=== PATIENT | male | born 1950 | race Caucasian/White ===

== ENCOUNTER 2018-07-19 16:35 | Inpatient (IN) | payer MEDICARE, OTHER ==
[2018-07-19 20:07] LABS: ADD MAN DIFF? NO
[2018-07-19 20:09] LABS: BASOPHIL # 0.1 10^3/ul (0.0-0.1); BASOPHILS % 0.7 % (0.0-2.0); EOSINOPHILS # 0.1 10^3/ul (0.0-0.5); EOSINOPHILS % 1.1 % (0.0-7.0); HEMATOCRIT 44.8 % (42.0-52.0); HEMOGLOBIN 14.5 g/dl (14.0-18.0); LYMPHOCYTES # 2.2 10^3/ul (0.8-2.9); LYMPHOCYTES % 23.1 % (15.0-51.0); MEAN CORPUSCULAR HEMOGLOBIN 28.3 pg (29.0-33.0); MEAN CORPUSCULAR HGB CONC 32.4 g/dl (32.0-37.0); MEAN CORPUSCULAR VOLUME 87.5 fl (82.0-101.0); MEAN PLATELET VOLUME 11.3 fl (7.4-10.4); MONOCYTES % 10.5 % (0.0-11.0); NEUTROPHILS % 63.1 % (39.0-77.0); PLATELET COUNT 242 10^3/UL (140-415); RED BLOOD COUNT 5.12 10^6/ul (4.70-6.10); RED CELL DISTRIBUTION WIDTH 13.9 % (11.5-14.5)
[2018-07-19 20:09] LABS: WHITE BLOOD COUNT 9.5 10^3/ul (4.8-10.8)
[2018-07-19 20:15] LABS: ADD UMIC YES; UR ASCORBIC ACID NEGATIVE (NEGATIVE); UR BILIRUBIN (Dip) NEGATIVE (NEGATIVE); UR BLOOD (Dip) 1+ mg/dL (NEGATIVE); UR CLARITY CLEAR (CLEAR); UR COLOR YELLOW (YELLOW); UR GLUCOSE (Dip) 3+ mg/dL (NEGATIVE); UR KETONES (Dip) NEGATIVE (NEGATIVE); UR LEUKOCYTE ESTERASE (Dip) NEGATIVE Leu/ul (NEGATIVE); UR NITRITE (Dip) NEGATIVE (NEGATIVE); UR RBC 1 /HPF (0-5); UR SPECIFIC GRAVITY (Dip) 1.014 (1.003-1.030); UR TOTAL PROTEIN (Dip) 2+ mg/dl (NEGATIVE); UR UROBILINOGEN (Dip) NEGATIVE (NEGATIVE); UR WBC 4 /HPF (0-5)
[2018-07-19] MEDS: ASPIRIN 81 MG TAB PO (20:19)
[2018-07-19] MEDS: SOD CHLORIDE 0.9% 500 ML IV (20:19)
[2018-07-19 20:28] LABS: ALANINE AMINOTRANSFERASE 23 IU/L (13-69); ALBUMIN 3.9 g/dl (3.3-4.9); ALBUMIN/GLOBULIN RATIO 1.21; ALKALINE PHOSPHATASE 98 IU/L (42-121); ANION GAP 14 (5-13); ASPARTATE AMINO TRANSFERASE 37 IU/L (15-46); BLOOD UREA NITROGEN 38 mg/dl (7-20); CALCIUM 9.5 mg/dl (8.4-10.2); CARBON DIOXIDE 26 mmol/L (21-31); CHLORIDE 95 mmol/L (97-110); CREATININE 2.29 mg/dl (0.61-1.24); Estimated GFR 29 mL/min (>60); INR 0.98; PROTIME 13.1 Sec (11.9-14.9); SODIUM 135 mmol/L (135-144); TOTAL PROTEIN 7.1 g/dl (6.1-8.1)
[2018-07-19 20:29] LABS: PARTIAL THROMBOPLASTIN TIME 23.1 Sec (23.0-35.0)
[2018-07-19 20:38] LABS: TROPONIN-I 0.052 ng/ml (0.000-0.120)
[2018-07-19 20:49] LABS: GLUCOSE 465 mg/dl (70-220)
[2018-07-19] MEDS: INSULIN LISPRO 100 UNIT/ML VIAL SC (21:08)
[2018-07-19] MEDS: SOD CHLORIDE 0.9% 1,000 ML IV (21:51)
[2018-07-19] MEDS ORDERED: ONDANSETRON 4 MG INJ IV (22:00)
[2018-07-19] MEDS ORDERED: ACETAMINOPHEN 325 MG TAB PO (22:00)
[2018-07-19] MEDS: DOCUSATE SODIUM 100 MG CAP PO (23:30)
[2018-07-20] MEDS ORDERED: GLUCAGON 1 MG INJ IM
[2018-07-20] MEDS ORDERED: DEXTROSE 50% 50 ML SYRINGE IV ×2
[2018-07-20] MEDS ORDERED: GLUCOSE GEL 15 GRAM TUBE PO ×2
[2018-07-20] MEDS ORDERED: GLUCOSE GEL 15 GRAM TUBE BUCCAL
[2018-07-20] MEDS: CLONIDINE 0.2 MG/24 HR PATCH TRANSDERM (00:41)
[2018-07-20] MEDS: INSULIN ASPART [NOVOLOG] 3 ML PEN SC ×4 (08:08→20:30)
[2018-07-20 08:29] LABS: ADD MAN DIFF? NO
[2018-07-20 08:37] LABS: BASOPHIL # 0.1 10^3/ul (0.0-0.1); BASOPHILS % 0.9 % (0.0-2.0); EOSINOPHILS # 0.1 10^3/ul (0.0-0.5); EOSINOPHILS % 1.2 % (0.0-7.0); HEMATOCRIT 43.1 % (42.0-52.0); HEMOGLOBIN 14.1 g/dl (14.0-18.0); LYMPHOCYTES # 1.8 10^3/ul (0.8-2.9); LYMPHOCYTES % 23.6 % (15.0-51.0); MEAN CORPUSCULAR HEMOGLOBIN 28.5 pg (29.0-33.0); MEAN CORPUSCULAR HGB CONC 32.7 g/dl (32.0-37.0); MEAN CORPUSCULAR VOLUME 87.1 fl (82.0-101.0); MEAN PLATELET VOLUME 11.4 fl (7.4-10.4); MONOCYTE # 0.8 10^3/ul (0.3-0.9); MONOCYTES % 10.1 % (0.0-11.0); NEUTROPHIL # 4.9 10^3/ul (1.6-7.5); PLATELET COUNT 206 10^3/UL (140-415); RED BLOOD COUNT 4.95 10^6/ul (4.70-6.10)
[2018-07-20 08:37] LABS: WHITE BLOOD COUNT 7.7 10^3/ul (4.8-10.8)
[2018-07-20 08:58] LABS: ANION GAP 12 (5-13); BLOOD UREA NITROGEN 35 mg/dl (7-20); CALCIUM 9.1 mg/dl (8.4-10.2); CARBON DIOXIDE 28 mmol/L (21-31); CHLORIDE 100 mmol/L (97-110); CREATININE 1.96 mg/dl (0.61-1.24); Estimated GFR 34 mL/min (>60); GLUCOSE 282 mg/dl (70-220); MAGNESIUM 1.8 mg/dl (1.7-2.5); POTASSIUM 4.6 mmol/L (3.5-5.1); SODIUM 140 mmol/L (135-144)
[2018-07-20] MEDS ORDERED: DILTIAZEM (CD) 180 MG CAP PO (09:00)
[2018-07-20] MEDS ORDERED: DILTIAZEM (CD) 120 MG CAP PO (09:00)
[2018-07-20] MEDS: DOCUSATE SODIUM 100 MG CAP PO ×2 (09:33→20:32)
[2018-07-20] MEDS: ASPIRIN (EC) 325 MG TAB PO (09:33)
[2018-07-20] MEDS: GABAPENTIN 100 MG CAP PO ×3 (09:33→20:32)
[2018-07-20] MEDS: METOPROLOL 25 MG TAB PO ×2 (13:37→20:33)
[2018-07-20] MEDS: LOSARTAN 50 MG TAB PO (13:38)
[2018-07-20] MEDS: AMLODIPINE 10 MG TAB PO (13:39)
[2018-07-21 06:15] LABS: ADD MAN DIFF? NO
[2018-07-21 06:24] LABS: WHITE BLOOD COUNT 7.2 10^3/ul (4.8-10.8)
[2018-07-21 06:24] LABS: BASOPHIL # 0.1 10^3/ul (0.0-0.1); BASOPHILS % 1.1 % (0.0-2.0); EOSINOPHILS # 0.2 10^3/ul (0.0-0.5); EOSINOPHILS % 2.1 % (0.0-7.0); HEMATOCRIT 46.9 % (42.0-52.0); HEMOGLOBIN 15.1 g/dl (14.0-18.0); LYMPHOCYTES # 1.7 10^3/ul (0.8-2.9); LYMPHOCYTES % 23.5 % (15.0-51.0); MEAN CORPUSCULAR HEMOGLOBIN 28.4 pg (29.0-33.0); MEAN CORPUSCULAR HGB CONC 32.2 g/dl (32.0-37.0); MEAN CORPUSCULAR VOLUME 88.2 fl (82.0-101.0); MEAN PLATELET VOLUME 11.4 fl (7.4-10.4); MONOCYTE # 0.8 10^3/ul (0.3-0.9); MONOCYTES % 11.6 % (0.0-11.0); NEUTROPHIL # 4.3 10^3/ul (1.6-7.5); PLATELET COUNT 218 10^3/UL (140-415); RED BLOOD COUNT 5.32 10^6/ul (4.70-6.10); RED CELL DISTRIBUTION WIDTH 14.1 % (11.5-14.5)
[2018-07-21 06:41] LABS: ANION GAP 17 (5-13); BLOOD UREA NITROGEN 37 mg/dl (7-20); CALCIUM 9.2 mg/dl (8.4-10.2); CARBON DIOXIDE 24 mmol/L (21-31); CHLORIDE 99 mmol/L (97-110); CREATININE 1.83 mg/dl (0.61-1.24); Estimated GFR 37 mL/min (>60); GLUCOSE 373 mg/dl (70-220); SODIUM 140 mmol/L (135-144)
[2018-07-21] MEDS: INSULIN GLARGINE [LANTus] (100 UNITS/ML) SYG SC ×3 (08:16→23:23)
[2018-07-21] MEDS: INSULIN ASPART [NOVOLOG] 3 ML PEN SC ×3 (08:17→17:32)
[2018-07-21] MEDS: DOCUSATE SODIUM 100 MG CAP PO ×2 (08:19→20:36)
[2018-07-21] MEDS: METOPROLOL 25 MG TAB PO ×2 (08:19→20:39)
[2018-07-21] MEDS: ASPIRIN 81 MG TAB PO (08:19)
[2018-07-21] MEDS: GABAPENTIN 100 MG CAP PO ×3 (08:20→20:36)
[2018-07-21] MEDS: LOSARTAN 50 MG TAB PO (08:20)
[2018-07-21] MEDS: AMLODIPINE 10 MG TAB PO (08:20)
[2018-07-21] MEDS: ACCU-CHEK XX ×3 (10:52→20:35)
[2018-07-22] MEDS: INSULIN GLARGINE [LANTus] (100 UNITS/ML) SYG SC ×2 (00:56→07:37)
[2018-07-22 05:50] LABS: ADD MAN DIFF? NO
[2018-07-22 05:56] LABS: BASOPHIL # 0.1 10^3/ul (0.0-0.1); BASOPHILS % 1.2 % (0.0-2.0); EOSINOPHILS # 0.2 10^3/ul (0.0-0.5); HEMATOCRIT 42.7 % (42.0-52.0); HEMOGLOBIN 13.8 g/dl (14.0-18.0); LYMPHOCYTES # 2.2 10^3/ul (0.8-2.9); LYMPHOCYTES % 28.9 % (15.0-51.0); MEAN CORPUSCULAR HEMOGLOBIN 28.5 pg (29.0-33.0); MEAN CORPUSCULAR HGB CONC 32.3 g/dl (32.0-37.0); MEAN CORPUSCULAR VOLUME 88.2 fl (82.0-101.0); MEAN PLATELET VOLUME 11.3 fl (7.4-10.4); MONOCYTE # 0.8 10^3/ul (0.3-0.9); MONOCYTES % 10.7 % (0.0-11.0); NEUTROPHIL # 4.2 10^3/ul (1.6-7.5); NEUTROPHILS % 55.7 % (39.0-77.0); PLATELET COUNT 209 10^3/UL (140-415); RED BLOOD COUNT 4.84 10^6/ul (4.70-6.10); RED CELL DISTRIBUTION WIDTH 14.1 % (11.5-14.5)
[2018-07-22 05:56] LABS: WHITE BLOOD COUNT 7.5 10^3/ul (4.8-10.8)
[2018-07-22 06:25] LABS: ANION GAP 9 (5-13); BLOOD UREA NITROGEN 34 mg/dl (7-20); CALCIUM 9.1 mg/dl (8.4-10.2); CARBON DIOXIDE 27 mmol/L (21-31); CHLORIDE 104 mmol/L (97-110); Estimated GFR 43 mL/min (>60); GLUCOSE 155 mg/dl (70-220); SODIUM 140 mmol/L (135-144)
[2018-07-22] MEDS: INSULIN ASPART [NOVOLOG] 3 ML PEN SC ×3 (07:37→17:21)
[2018-07-22] MEDS: AMLODIPINE 10 MG TAB PO (09:17)
[2018-07-22] MEDS: GABAPENTIN 100 MG CAP PO ×3 (09:17→20:13)
[2018-07-22] MEDS: DOCUSATE SODIUM 100 MG CAP PO ×2 (09:17→20:10)
[2018-07-22] MEDS: METOPROLOL 25 MG TAB PO ×2 (09:18→20:11)
[2018-07-22] MEDS: LOSARTAN 50 MG TAB PO (09:18)
[2018-07-22] MEDS: ASPIRIN 81 MG TAB PO (09:20)
[2018-07-22] MEDS: ACCU-CHEK XX ×3 (10:18→20:24)
[2018-07-23] MEDS: INSULIN GLARGINE [LANTus] (100 UNITS/ML) SYG SC ×2 (00:06→07:57)
[2018-07-23 06:55] LABS: ALANINE AMINOTRANSFERASE 34 IU/L (13-69); ALBUMIN 3.2 g/dl (3.3-4.9); ALBUMIN/GLOBULIN RATIO 1.14; ALKALINE PHOSPHATASE 100 IU/L (42-121); ANION GAP 10 (5-13); ASPARTATE AMINO TRANSFERASE 26 IU/L (15-46); BLOOD UREA NITROGEN 28 mg/dl (7-20); CALCIUM 8.7 mg/dl (8.4-10.2); CARBON DIOXIDE 24 mmol/L (21-31); CHLORIDE 105 mmol/L (97-110); CREATININE 1.52 mg/dl (0.61-1.24); Estimated GFR 46 mL/min (>60); GLUCOSE 228 mg/dl (70-220); POTASSIUM 4.7 mmol/L (3.5-5.1); SODIUM 139 mmol/L (135-144)
[2018-07-23] MEDS: INSULIN ASPART [NOVOLOG] 3 ML PEN SC (08:13)
[2018-07-23] MEDS: DOCUSATE SODIUM 100 MG CAP PO (08:22)
[2018-07-23] MEDS: METOPROLOL 25 MG TAB PO (08:23)
[2018-07-23] MEDS: AMLODIPINE 10 MG TAB PO (08:23)
[2018-07-23] MEDS: ASPIRIN 81 MG TAB PO (08:23)
[2018-07-23] MEDS: GABAPENTIN 100 MG CAP PO (08:23)
[2018-07-23] MEDS: LOSARTAN 50 MG TAB PO (08:24)
[2018-07-23] MEDS: ACCU-CHEK XX (10:00)
[2018-07-23 10:37] LABS: CREATININE,URINE RANDOM 81.86 mg/dl (20-370); PROTEIN/CREAT RATIO 0.67 RATIO
== END 2018-07-23 12:25 | disposition home or self-care (01) | DRG 683 ==
LOC: E/R 16:35 → 6WM 21:52
DX: N17.9 Acute kidney failure, unspecified (principal); I13.0 Hypertensive heart and chronic kidney disease with heart failure and stage 1 through stage 4 chronic kidney disease, or unspecified chronic kidney disease; I50.40 Unspecified combined systolic (congestive) and diastolic (congestive) heart failure; E11.65 Type 2 diabetes mellitus with hyperglycemia; E11.22 Type 2 diabetes mellitus with diabetic chronic kidney disease; N18.3 Chronic kidney disease, stage 3 (moderate); E11.21 Type 2 diabetes mellitus with diabetic nephropathy; E11.40 Type 2 diabetes mellitus with diabetic neuropathy, unspecified; E11.39 Type 2 diabetes mellitus with other diabetic ophthalmic complication; E78.5 Hyperlipidemia, unspecified; I25.10 Atherosclerotic heart disease of native coronary artery without angina pectoris; I16.0 Hypertensive urgency; N40.1 Benign prostatic hyperplasia with lower urinary tract symptoms; N39.498 Other specified urinary incontinence; F32.9 Major depressive disorder, single episode, unspecified; F40.240 Claustrophobia; F41.9 Anxiety disorder, unspecified; F41.0 Panic disorder [episodic paroxysmal anxiety]; K64.9 Unspecified hemorrhoids; M54.5 Low back pain; M19.90 Unspecified osteoarthritis, unspecified site; Z91.14 Patient's other noncompliance with medication regimen; R42 Dizziness and giddiness; R26.81 Unsteadiness on feet; Z98.61 Coronary angioplasty status
CPT/HCPCS: 36415; 70450; 71045; 76775; 76856; 80048; 80053; 81001; 81003; 82570; 82962; 83735; 84100; 84484; 85025; 85610; 85730; 93005; 93306; 96360; 96372; 97162; 99285-25; G0378